=== PATIENT | female | born 1960 | race Caucasian/White ===

== ENCOUNTER → 2017-06-23 | Outpatient (CLI) | payer OTHER | LOC: BRMIMAGING 09:26 | PROVIDERS: ATTEND Physician Assistant | DX: Z12.39 Encounter for other screening for malignant neoplasm of breast (principal); N64.52 Nipple discharge | CPT/HCPCS: 76641-PO; G0204 ==

== ENCOUNTER → 2018-06-23 | Outpatient (CLI) | payer OTHER | LOC: BRMIMAGING 13:01 | PROVIDERS: ATTEND Obstetrics & Gynecology | DX: Z12.31 Encounter for screening mammogram for malignant neoplasm of breast (principal) ==